=== PATIENT | female | born 1995 | race Caucasian/White ===

== ENCOUNTER 2022-08-21 04:08 | Day surgery (SDC) | payer OTHER ==
[2022-08-16 15:43] VITALS: BMI 38.2
[2022-08-21] MEDS ORDERED: BUPIVACAINE HCL/PF 0.25% (2.5MG/ML) 10 ML VIAL ONE (07:10)
[2022-08-21] MEDS ORDERED: CEFOXITIN SODIUM 1 GM IVPB ONE (07:49)
[2022-08-21] MEDS ORDERED: HEPARIN NA (PORCINE) 5,000 UNITS/ML 1ML VIAL ONE (07:49)
[2022-08-21] MEDS ORDERED: MIDAZOLAM HCL 2 MG/2 ML SINGLE DOSE VIAL ONE (07:49)
[2022-08-21] MEDS ORDERED: cefOXitin SODIUM 2 GM VIAL (RESTRICTED TO ID) IVPB ONE ×2 (07:49→08:19)
[2022-08-21] MEDS ORDERED: PROPOFOL 20 ML ONE ×2 (07:49→09:01)
[2022-08-21] MEDS ORDERED: ceFAZolin SODIUM 1 GM VIAL ONE (07:53)
[2022-08-21] MEDS ORDERED: LIDOCAINE HCL/PF 2% SDV 5ML VIAL ONE (07:53)
[2022-08-21] MEDS ORDERED: SODIUM CHLORIDE 0.9% P/F 10 ML VIAL IJ ONE ×2 (07:53→08:16)
[2022-08-21] MEDS ORDERED: ROCURONIUM BROMIDE 50 MG/5 ML SYRINGE ONE (08:07)
[2022-08-21] MEDS ORDERED: ceFAZolin SODIUM 1 GM VIAL IVPB ONE (08:09)
[2022-08-21] MEDS ORDERED: ONDANSETRON 4 MG/2 ML VIAL ONE (08:19)
[2022-08-21] MEDS ORDERED: DEXAMETHASONE SOD PHOSPHATE 4 MG/1 ML VIAL ONE (08:19)
[2022-08-21] MEDS ORDERED: BUPIVACAINE HCL/PF 0.25% (2.5MG/ML) 10 ML VIAL IJ ONE (08:26)
[2022-08-21] MEDS ORDERED: GLYCOPYRROLATE 0.2 MG/1 ML VIAL ONE (08:39)
[2022-08-21] MEDS ORDERED: NEOSTIGMINE METHYLSULFATE 0.5 MG/1 ML - 10 ML MDV ONE (08:40)
[2022-08-21] MEDS ORDERED: KETOROLAC TROMETHAMINE 30 MG/1 ML VIAL ONE (08:54)
[2022-08-21] MEDS ORDERED: ONDANSETRON 4 MG/2 ML VIAL IVPUSH PRN (09:19)
[2022-08-21] MEDS ORDERED: oxyCODONE HCL 5 MG TABLET PO PRN (09:19)
[2022-08-21] MEDS ORDERED: PROMETHAZINE HCL 25 MG/1 ML VIAL IVPB PRN (09:19)
[2022-08-21] MEDS ORDERED: LORazepam 2 MG/ML SDV VIAL IVPUSH ONE (09:20)
[2022-08-21] MEDS ORDERED: ACETAMINOPHEN 1000 MG/100 ML BAG IVPB ONE (09:23)
[2022-08-21] MEDS ORDERED: LACTATED RINGERS SOLUTION 1,000 ML IV SCH (09:30)
[2022-08-21 11:56] VITALS: PULSE 74; RESP 20
[2022-08-21 15:40] VITALS: BP 100/61; TEMP 98.4
== END 2022-08-21 14:15 | disposition home or self-care (01) ==
LOC: JASUSAT 04:08 → EDSTATUS 08:00 → JASUSAT 14:15
PROVIDERS: ATTEND Surgery
PROC: 0FT44ZZ Resection of Gallbladder, Percutaneous Endoscopic Approach (ICD-10-PCS; principal; 2022-08-21 08:00)
DX: K80.50 Calculus of bile duct without cholangitis or cholecystitis without obstruction (principal)
CPT/HCPCS: 81025; 86850; 86900; 86901; 88304-TC; 94760; J1644